=== PATIENT | male | born 1980 | race African-American/Black ===

== ENCOUNTER 2017-10-10 19:44 | Emergency (ER) | payer SELFPAY | END 2017-10-10 21:46 | disposition home or self-care (01) | LOC: ER 19:44 | DX: S90.32XA Contusion of left foot, initial encounter (principal); S90.31XA Contusion of right foot, initial encounter; W20.8XXA Other cause of strike by thrown, projected or falling object, initial encounter; Y93.89 Activity, other specified; Y92.89 Other specified places as the place of occurrence of the external cause; Y99.8 Other external cause status | CPT/HCPCS: 73630; 99284 ==